=== PATIENT | female | born 1970 | race Caucasian/White ===

== ENCOUNTER 2016-12-06 19:29 | Emergency (ER) | payer BC ==
[2016-12-06 20:11] VITALS: BP 126/77
[2016-12-06] MEDS ORDERED: DOXYcycline CAP(*) 100 MG PO ONE (20:42)
[2016-12-06] MEDS ORDERED: diPHENhydraMINE PO* 50 MG PO ONE (20:43)
--- NOTE | 2016-12-06 21:28 | UC ---
UC General HPI - HPI Summary HPI Summary: TICK BITE RIGHT SHOULDER NO FEVER NO RASH - History of Current Complaint Chief Complaint: UCSkin Stated Complaint: TICK BITE Time Seen by Provider: 12/06/16 20:21 Hx Obtained From: Patient, Family/Paper Folder Onset/Duration: Sudden Onset, Lasting Days, Still Present Onset Severity: Mild Current Severity: Mild Pain Intensity: 0 - Allergy/Home Medications Allergies/Adverse Reactions: Allergies Allergy/AdvReac Type Severity Reaction Status Date / Time Morphine Allergy Shortness Verified 03/05/16 06:45 of Breath PMH/Surg Hx/FS Hx/Imm Hx Previously Healthy: Yes Endocrine History Of: Reports: Thyroid Disease - HYPOTHYROIDISM Denies: Diabetes Cardiovascular History Of: Denies: Hypertension GI/ History Of: Denies: Renal Disease Psychological History Of: Reports: Anxiety - RELATED TO UPCOMING SURGERY, Depression - BIPOLAR - MANIC (ON MEDS) - Surgical History Surgical History: Yes Surgery Procedure, Year, and Place: 2002 EXCISION OF GLANGLIONEUROBLASTOMA AND CHOLECYSTECTOMY, [place] - Family History Known Family History: Negative: Blood Disorder - Social History Occupation: Employed Full-time Lives: With Family Alcohol Use: Rare Substance Use Type: None Smoking Status (MU): Never Smoked Tobacco Review of Systems Constitutional: Negative Skin: Rash - TICK BITE RIGHT SHOULDER Eyes: Negative ENT: Negative Respiratory: Negative Cardiovascular: Negative Gastrointestinal: Negative Genitourinary: Negative Motor: Negative Neurovascular: Negative Musculoskeletal: Negative Neurological: Negative Psychological: Negative All Other Systems Reviewed And Are Negative: Yes Physical Exam Triage Information Reviewed: Yes Appearance: Well-Appearing, No Pain Distress, Well-Nourished Vital Signs: Initial Vital Signs Temp 97.9 F 12/06/16 20:08 Pulse 66 12/06/16 20:08 Resp 18 12/06/16 20:08 BP 126/77 12/06/16 20:08 Pulse Ox 98 12/06/16 20:08 Vital Signs Reviewed: Yes Eye Exam: Normal ENT Exam: Normal ENT: Positive: Normal ENT inspection, Hearing grossly normal, TMs normal Dental Exam: Normal Neck exam: Normal Neck: Positive: Supple, Nontender, No Lymphadenopathy Respiratory Exam: Normal Respiratory: Positive: Chest non-tender, Lungs clear, Normal breath sounds, No respiratory distress Cardiovascular Exam: Normal Cardiovascular: Positive: RRR, No Murmur Abdominal Exam: Normal Abdomen Description: Positive: Nontender, No Organomegaly Musculoskeletal Exam: Normal Neurological Exam: Normal Psychological Exam: Normal Psychological: Positive: Normal Response To Family Skin: Positive: rashes - TICK BITE RIGHT SHOULDER Course/Dx - Differential Dx - Multi-Symptom Differential Diagnoses: Other - LYME Provider Diagnoses: TICK BITE PROPHYLAXIS Discharge - Discharge Plan Condition: Stable Disposition: HOME Patient Education Materials: Tick Bite (ED) Referrals: Jesus Berkowitz MD [Primary Care Provider] - Images Front/Back of Body, Lg ([place]): 1 - TICK BITE HERE
== END 2016-12-06 20:50 | disposition home or self-care (01) ==
LOC: UCEAST 19:29
DX: S40.261A Insect bite (nonvenomous) of right shoulder, initial encounter (principal); W57.XXXA Bitten or stung by nonvenomous insect and other nonvenomous arthropods, initial encounter; Z88.5 Allergy status to narcotic agent
CPT/HCPCS: 99212; A9270-GY; G0463